=== PATIENT | female | born 1995 | race Hispanic/Latino ===

== ENCOUNTER 2017-11-28 22:30 | Emergency (ER) | payer OTHER ==
[~2017-11-28] VITALS: Ht 154.9 cm; Wt 96.6 kg
[~2017-11-28 22:30] MED LIST: AMOXICILLIN500 M3 PO; BENADRYL PO; BENTYL10 MG PO; FLONASE120 SPRAY/ NAS; IBU800 MG PO; IBUPROFEN800 MG PO; LIDO PO; MAALOX PO; MEDROL4 M2 PO; NAPROSYN500 M1 PO; PERCOCET 325 MG1 TA2 PO; PERCOCET 5-3251 EACH PO; SUMATRIPTAN SU100 MG PO; TESSALON PERLE100 M1 PO; TESSALON PERLE100 MG PO; ZOFRAN ODT4 M1 SL; ZOFRAN4 M1 SL; [UNRECOGNIZED DRUG - CODE]
--- NOTE | 2017-11-28 23:29 | ED GENERAL ADULT ---
History of Present Illness General Chief Complaint: General Adult Stated Complaint: R EYE PAIN, NAUSEA, BODY ACHES Source: patient Exam Limitations: no limitations Vital Signs & Intake/Output Vital Signs & Intake/Output Vital Signs Date Time Temp Pulse Resp B/P B/P Pulse O2 O2 Flow FiO2 Mean Ox Delivery Rate 11/29 0154 97.6 107 18 118/76 97 Room Air 11/28 2322 98.1 98 18 118/72 98 Room Air ED Intake and Output 11/29 0000 11/28 1200 Intake Total Output Total Balance Patient 213 lb Weight Weight Estimated Measurement Method Allergies Coded Allergies: NO KNOWN ALLERGIES (07/11/16) Reconcile Medications Amoxicillin 500 MG TABLET 1 TAB PO BID OTITIS MEDIA Benzonatate (Tessalon Perle) 100 MG CAPSULE 1 CAP PO TID PRN COUGH [lido/maalox/benadryl] 15 ML ORAL.SUSP 5 ML PO TID PRN SORE THROAT SWISH AND SWALLOW 1/3 BENADRYL 1/3 LIDOCAINE 1/3 MAALOX Methylprednisolone. (Medrol) 4 MG TAB.DS.PK 1 DP PO AD INFLAMMATION 6 on day 1 then reduce by one tablet daily until gone Omeprazole Magnesium (Prilosec Otc) 20 MG TABLET.DR 1 TAB PO DAILY STOMACH ACID Ondansetron (Zofran Odt) 4 MG TAB.RAPDIS 1 TAB SL TID PRN NAUSEA Ondansetron (Zofran Odt) 4 MG TAB.RAPDIS 1 TAB SL TID PRN nausea and vomiting Polytrim (Polytrim Eye Drops) 10,000 UNIT-1 MG/ML DROPS 2 GTT OPH Q6 conjunctivitis x 7 days Triage Note: RECEIVED 22 YO FEMALE C/O RIGHT EYE SWELLING TODAY. R EYE HAS BEEN RED, NOW IT IS JUST SWOLLEN. ALSO C/O BODY ACHES AND PAIN, NAUSEA. + DIARRHEA. PT ALSO REPORTS ABDOMINAL PAIN WITH SOME DIFFICULTY BREATHING Triage Nurses Notes Reviewed? yes Onset: Gradual Duration: day(s): Timing: recent history Injury Environment: home Severity: mild : No Patient currently breastfeeds: No HPI: 22 yo woman with 3 days of diffuse mild mid epigastric abdominal discomfort with occasional nausea. Also, she notes right eye itching with slight discharge x 3 days. She notes normal BM's. NO dysuria, vaginal discharge. She is otherwise well. Past History Travel History Traveled to [place] past 21 day No Medical History Any Pertinent Medical History? see below for history Neurological: MIGRAINES EENT: NONE Cardiovascular: NONE Respiratory: NONE Gastrointestinal: NONE Hepatic: NONE Renal: NONE Musculoskeletal: NONE Psychiatric: NONE Endocrine: NONE Blood Disorders: NONE Cancer(s): NONE [employer]/Reproductive: NONE Tetanus Vaccine: 07/18/12 Surgical History Surgical History: non-contributory Psychosocial History What is your primary language [place] Tobacco Use: Never used Family History Hx Contributory? No Review of Systems Review of Systems Constitutional: Reports: no symptoms. EENTM: Reports: no symptoms. Respiratory: Reports: no symptoms. Cardiovascular: Reports: no symptoms. GI: Reports: no symptoms. Genitourinary: Reports: no symptoms. Musculoskeletal: Reports: no symptoms. Skin: Reports: no symptoms. Neurological/Psychological: Reports: no symptoms. Hematologic/Endocrine: Reports: no symptoms. Immunologic/Allergic: Reports: no symptoms. All Other Systems: Reviewed and Negative Physical Exam Physical Exam General Appearance: well developed/nourished, mild distress Head: atraumatic, normal appearance Eyes: Bilateral: normal appearance. Ears, Nose, Throat: normal pharynx, normal ENT inspection Neck: normal inspection, supple, full range of motion Respiratory: normal breath sounds, chest non-tender, no respiratory distress, quiet respiration, lungs clear Cardiovascular: regular rate/rhythm Gastrointestinal: normal bowel sounds, soft, non-tender, no organomegaly Back: normal inspection Extremities: normal inspection, normal capillary refill, normal range of motion, no edema Neurologic/Psych: no motor/sensory deficits, awake, alert, oriented x 3 Skin: intact, normal color, warm/dry Core Measures ACS in differential dx? No CVA/TIA Diagnosis: No Sepsis Present: No Sepsis Focused Exam Completed? No Progress Differential Diagnoses I considered the following diagnoses in my evaluation of the patient: gastroenteritis, gastritis vs other. Plan of Care: Orders Procedure Date/time Status URINALYSIS 11/28 2328 Complete LIPASE 11/28 2328 Complete HEPATIC FUNCTION PANEL 11/28 2328 Complete HUMAN BETA HCG SCREEN 11/28 2328 Complete CBC WITHOUT DIFFERENTIAL 11/28 2328 Complete BASIC METABOLIC PANEL 11/28 2328 Complete AMYLASE 11/28 2328 Complete Laboratory Tests 11/29/17 0050: Anion Gap 13, Estimated GFR > 60, BUN/Creatinine Ratio 20.0, Glucose 84, Calcium 9.7, Total Bilirubin 0.5, Direct Bilirubin 0.4, AST 25, ALT 50, Alkaline Phosphatase 96, Total Protein 7.0, Albumin 4.1, Amylase 95, Lipase 360 H, Total Beta HCG NEGATIVE, CBC w Diff NO MAN DIFF REQ, RBC 4.96, MCV 77.1 L, MCH 24.5 L, MCHC 31.8 L, RDW 14.0, MPV 7.8, Gran % 47.1, Lymphocytes % 40.0, Monocytes % 10.3 H, Eosinophils % 1.9, Basophils % 0.7, Absolute Granulocytes 4.9, Absolute Lymphocytes 4.1 H, Absolute Monocytes 1.1 H, Absolute Eosinophils 0.2, Absolute Basophils 0.1, Urine Color YEL, Urine Clarity CLEAR, Urine pH 6.0, Ur Specific [place] >= 1.030, Urine Protein NEG, Urine Ketones NEG, Urine Nitrite NEG, Urine Bilirubin NEG, Urine Urobilinogen 1.0, Ur Leukocyte Esterase NEG, Ur Microscopic EXAM NOT REQUIRED, Urine Hemoglobin NEG, Urine Glucose NEG Initial ED EKG: none Departure Departure Disposition: HOME OR SELF CARE Condition: Stable Clinical Impression Primary Impression: Abdominal pain Secondary Impressions: Conjunctivitis Referrals: Celeste Avery DO (PCP/Family) Departure Forms: Customer Survey General Discharge Information Prescriptions: Current Visit Scripts Polytrim (Polytrim Eye Drops) 2 GTT OPH Q6 #20 ML x 7 days Omeprazole Magnesium (Prilosec Otc) 1 TAB PO DAILY #30 TAB Ondansetron (Zofran Odt) 1 TAB SL TID PRN NAUSEA #10 TAB Comments well appearing at discharge with benign labs. gave polytrim and prilosec and advocated supportive measures. Critical Care Note Critical Care Note Critical Care Time: non-applicable
[2017-11-29 01:14] LABS: ABSOLUTE BASOPHIL COUNT 0.1 /CUMM (0.0-0.2); ABSOLUTE EOSINOPHIL COUNT 0.2 /CUMM (0.0-0.7); ABSOLUTE GRANULOCYTE CT 4.9 /CUMM (1.4-6.5); ABSOLUTE LYMPH COUNT 4.1 /CUMM (1.2-3.4); ABSOLUTE MONOCYTE COUNT 1.1 /CUMM (0.10-0.60); BASOPHIL % 0.7 % (0.0-2.0); EOSINOPHIL % 1.9 % (0-5); GRANULOCYTE % 47.1 % (42.2-75.2); HEMATOCRIT 38.2 % (37-47); MEAN CORPUSCULAR HGB 24.5 PG (27.0-31.0); MEAN CORPUSCULAR HGB CONC 31.8 G/DL (33.0-37.0); MEAN CORPUSCULAR VOLUME 77.1 FL (81.0-99.0); MEAN PLATELET VOLUME 7.8 FL (7.4-10.4); PLATELET COUNT 424 /CUMM (130-400); RED BLOOD CELL CT 4.96 /CUMM (4.20-5.40)
[2017-11-29 01:40] LABS: WHITE BLOOD CELL COUNT 10.3 /CUMM (4.8-10.8)
[2017-11-29] MEDS ORDERED: POLYTRIM EYE DR10 ML OPH (01:48)
[2017-11-29] MEDS ORDERED: ZOFRAN ODT4 M1 SL (01:48)
[2017-11-29] MEDS ORDERED: PRILOSEC OTC20 M1 PO (01:48)
[2017-11-29 01:54] VITALS: BP 118/76
== END 2017-11-29 02:01 ==
LOC: ERH 22:30
PROVIDERS: Pediatrics
DX: H10.9 Unspecified conjunctivitis (principal); R10.84 Generalized abdominal pain
CPT/HCPCS: 81003; J3101